=== PATIENT | male | born 1980 | race Two or more races ===

== ENCOUNTER 2017-03-07 05:31 | Emergency (ER) | payer MEDICAID ==
--- NOTE | 2017-03-07 05:34 | EDPHY ---
H & P Source: Patient, Police - Medical/Surgical History Hx Asthma: Yes Hx Chronic Respiratory Disease: No Hx Diabetes: No Hx Cardiac Disease: No Hx Renal Disease: No Hx Cirrhosis: No Hx Alcoholism: Yes Hx HIV/AIDS: No Hx Splenectomy or Spleen Trauma: No Other PMH: PTSD, BIPOLAR,, SZ? - Social History Smoking Status: Current every day smoker HPI/ROS: HPI CHIEF COMPLAINT: M1 hold, jumping in front of a bus. HISTORY OF PRESENT ILLNESS: This patient is a 36-year-old male, significant past medical history for PTSD and social anxiety disorder, admits to doing LSD this evening he presents emergency room on M1 hold by police after he was found jumping out in front of a bus is in the roadway. Patient tells me was trying to get onto the windshield of a bus. He denies wanting to hurt himself or being suicidal. Denies ingestion. Admits to doing LSD this evening. This put on M1 hold by [place] [employer] for being a threat to himself. Touching in out of traffic and jumping in front of a bus. Past Medical History: Social anxiety disorder, PTSD Past Surgical History: no recent surgery Social History: admits to doing LSD, homeless Family History: noncontributory ROS REVIEW OF SYSTEMS: A comprehensive 10 point review of systems is otherwise negative aside from elements mentioned in the history of present illness. Exam Constitutional appears nontoxic, triage nursing summary reviewed, vital signs reviewed, awake/alert. Eyes normal conjunctivae and sclera, EOMI, PERRLA. HENT normal inspection, atraumatic, moist mucus membranes, no epistaxis, neck supple/ no meningismus, no raccoon eyes. Respiratory clear to auscultation bilaterally, normal breath sounds, no respiratory distress, no wheezing. Cardiovascular rate normal, regular rhythm, no murmur, no edema, distal pulses normal. Gastrointestinal soft, non-tender, no rebound, no guarding, normal bowel sounds, no distension, no pulsatile mass. Genitourinary no CVA tenderness. Musculoskeletal no midline vertebral tenderness, full range of motion, no calf swelling, no tenderness of extremities, no meningismus, good pulses, neurovascularly intact. Skin pink, warm, & dry, no rash, skin atraumatic. Neurologic awake, alert and oriented x 3, AAOx3, moves all 4 extremities equally, motor intact, sensory intact, CN II-XII intact, normal cerebellar, normal vision, normal speech. Psychiatric normal mood/affect. Heme/Lymph/Immune no lymphadenopathy. Differential Diagnosis: includes but is not limited to in a particular order: drug intoxication, acute psychosis, gravely disabled Medical Decision Making: patient is on M1 hold he will need medical clearance with a blood draw first. And then mental health evaluation. Drug screen. Re-evaluation: (Braydon Solis) Constitutional: Initial Vital Signs Temperature (C) 36.7 C 03/07/17 05:32 Heart Rate 72 03/07/17 05:32 Respiratory Rate 16 03/07/17 05:32 Blood Pressure 142/81 H 03/07/17 05:32 O2 Sat (%) 95 03/07/17 05:32 O2 Delivery Mode Room Air Allergies/Adverse Reactions: No Known Allergies Allergy (Unverified 04/08/14 20:26) Home Medications: Medication Instructions Recorded Divalproex Sodium [Depakote] 250 mg PO TID 04/08/14 Medical Marijuana 04/08/14 Methylphenidate HCl [Ritalin] 0 mg PO 04/08/14 Medical Decision Making Other Provider: Mental health recommended lifting hold and outpatient follow up. Hold has been dropped. (Charan Vidales) - Data Points Laboratory Results: Laboratory Results 03/07/17 05:30 03/07/17 05:30 03/07/17 03/07/17 03/07/17 05:30 05:30 05:30 WBC 11.52 10^3/uL H 10^3/uL (3.80-9.50) RBC 3.59 10^6/uL L 10^6/uL (4.40-6.38) Hgb 10.9 g/dL L g/dL (13.7-17.5) Hct 32.6 % L % (40.0-51.0) MCV 90.8 fL fL (81.5-99.8) MCH 30.4 pg pg (27.9-34.1) MCHC 33.4 g/dL g/dL (32.4-36.7) RDW 14.6 % % (11.5-15.2) Plt Count 679 10^3/uL H 10^3/uL (150-400) MPV 8.6 fL L fL (8.7-11.7) Neut % (Auto) 78.5 % H % (39.3-74.2) Lymph % (Auto) 13.1 % L % (15.0-45.0) Wolfe % (Auto) 6.4 % % (4.5-13.0) Eos % (Auto) 1.4 % % (0.6-7.6) Baso % (Auto) 0.3 % % (0.3-1.7) Nucleat RBC Rel Count 0.0 % % (0.0-0.2) Absolute Neuts (auto) 9.04 10^3/uL H 10^3/uL (1.70-6.50) Absolute Lymphs (auto) 1.51 10^3/uL 10^3/uL (1.00-3.00) Absolute Monos (auto) 0.74 10^3/uL 10^3/uL (0.30-0.80) Absolute Eos (auto) 0.16 10^3/uL 10^3/uL (0.03-0.40) Absolute Basos (auto) 0.03 10^3/uL 10^3/uL (0.02-0.10) Absolute Nucleated RBC 0.00 10^3/uL 10^3/uL (0-0.01) Immature Gran % 0.3 % % (0.0-1.1) Immature Gran # 0.04 10^3/uL 10^3/uL (0.00-0.10) Sodium 142 mEq/L mEq/L (134-144) Potassium 5.0 mEq/L mEq/L (3.5-5.2) Chloride 104 mEq/L mEq/L (97-110) Carbon Dioxide 23 mEq/l mEq/l (22-31) Anion Gap 15 mEq/L mEq/L (8-16) BUN 21 mg/dL mg/dL (7-23) Creatinine 1.1 mg/dL mg/dL (0.7-1.3) Estimated GFR > 60 Glucose 95 mg/dL mg/dL (70-100) Calcium 10.5 mg/dL H mg/dL (8.5-10.4) Urine Opiates Screen NEGATIVE (NEGATIVE) Urine Barbiturates NEGATIVE (NEGATIVE) Ur Phencyclidine Scrn NEGATIVE (NEGATIVE) Ur Amphetamine Screen NON-NEGATIVE H (NEGATIVE) U Benzodiazepines Scrn NEGATIVE (NEGATIVE) Urine Cocaine Screen NEGATIVE (NEGATIVE) U Marijuana (THC) Screen NON-NEGATIVE H (NEGATIVE) Ethyl Alcohol < 10 mg/dL mg/dL (0-10) Medications Given: Discontinued Medications Acetaminophen (Tylenol) 650 mg PO EDNOW ONE Stop: 03/07/17 08:28 Last Admin: 03/07/17 08:41 Dose: 650 mg Departure - Departure Disposition: Home, Routine, Self-Care Clinical Impression: Methamphetamine abuse Condition: Good Instructions: Methamphetamine Abuse (ED), Polysubstance Abuse (ED) Additional Instructions: Avoid abusing drugs. Follow up with the resources provided by mental health as directed. Referrals: NONE *PRIMARY CARE P,. [Primary Care Provider] - As per Instructions [facility] [Outside] - As per Instructions [facility] [Outside] - As per Instructions
[2017-03-07] MEDS ORDERED: NICOTINE POLACRILEX 2 MG GUM B ONE (05:43)
[2017-03-07 05:46] LABS: % IMMATURE GRANULYOCYTES 0.3 % (0.0-1.1); ABSOLUTE IMMATURE GRANULOCYTES 0.04 10^3/uL (0.00-0.10); ADD DIFF? NO; ADD MORPH? NO; ADD SCAN? NO; ATYPICAL LYMPHOCYTE FLAG 0 (0-99); FRAGMENT RBC FLAG 0 (0-99); HEMATOCRIT 32.6 % (40.0-51.0); HEMOGLOBIN 10.9 g/dL (13.7-17.5); LEFT SHIFT FLG 0 (0-99); LIPEMIA HEMOLYSIS FLAG 80 (0-99); MEAN CELL HEMOGLOBIN 30.4 pg (27.9-34.1); MEAN CELL HEMOGLOBIN CONCENTR. 33.4 g/dL (32.4-36.7); MEAN CELL VOLUME 90.8 fL (81.5-99.8); MEAN PLATELET VOLUME 8.6 fL (8.7-11.7); PLATELET CLUMPS FLAG 0 (0-99); PLATELET COUNT 679 10^3/uL (150-400); RED BLOOD CELL COUNT 3.59 10^6/uL (4.40-6.38); RED CELL DISTRIBUTION WIDTH 14.6 % (11.5-15.2)
[2017-03-07] MEDS ORDERED: NICOTINE POLACRILEX 2 MG GUM B PRN (05:50)
[2017-03-07 06:11] LABS: ANION GAP 15 mEq/L (8-16); CALCIUM 10.5 mg/dL (8.5-10.4); CARBON DIOXIDE 23 mEq/l (22-31); CHLORIDE 104 mEq/L (97-110); CREATININE 1.1 mg/dL (0.7-1.3); ETHANOL SERUM < 10 mg/dL (0-10); GLOMERULAR FILTRATION RATE > 60; GLUCOSE 95 mg/dL (70-100); SODIUM 142 mEq/L (134-144)
[2017-03-07] MEDS ORDERED: ACETAMINOPHEN 325 MG TAB PO ONE (08:27)
[2017-03-07 16:14] VITALS: RESP 14
[2017-03-07 17:07] VITALS: BP 144/84; PULSE 80; TEMP 98.4; O2SAT 94
== END 2017-03-07 17:06 | disposition home or self-care (01) ==
DX: F15.10 Other stimulant abuse, uncomplicated (principal); J45.909 Unspecified asthma, uncomplicated; F17.200 Nicotine dependence, unspecified, uncomplicated
CPT/HCPCS: 80305; G0480